=== PATIENT | female | born 1985 | race Caucasian/White ===

== ENCOUNTER → 2017-11-13 14:13 | Outpatient (CLI) | payer OTHER, SELFPAY ==
[2017-11-13 14:24] LABS: Color, Urine Yellow (Yellow); Glucose, Dipstick Normal (Normal); Ketone-Dipstick Negative (Negative); Leukocyte Esterase-Dipstick Negative /ul (Negative); Nitrite-Dipstick Negative (Negative); Occult Blood-Urine 25 /ul (Negative); Protein-Dipstick 15 mg/dl (Negative); Specific Gravity, Urine 1.025 (1.002-1.030); Urine Bilirubin Dipstick Negative (Negative); Urine Clarity Turbid (Clear); Urine Urobilinogen Normal (Normal)
[2017-11-13 14:35] LABS: Bacteria 4+ /hpf (None Seen); Mucous, Urine 0 SEEN /hpf (<or=2+); Red Blood Cells-Urine 0 SEEN /hpf (0-5); Squamous Epithelial Cells - UA 0 SEEN /hpf (5-10); White Blood Cells 0 SEEN /hpf (0-5)
== END ==
PROVIDERS: Family Provider Family Medicine; PCP Family Medicine; Visit Provider Physician Assistant Surgical
DX: M54.5 Low back pain (principal)
CPT/HCPCS: 81001; 87086; 87088

== ENCOUNTER → 2017-12-16 10:00 | Outpatient (CLI) | payer OTHER, SELFPAY ==
[2017-12-16 11:33] LABS: Color, Urine Yellow (Yellow); Glucose, Dipstick Normal (Normal); Ketone-Dipstick 5 mg/dl (Negative); Leukocyte Esterase-Dipstick Negative /ul (Negative); Nitrite-Dipstick Negative (Negative); Occult Blood-Urine 10 /ul (Negative); Protein-Dipstick 15 mg/dl (Negative); Specific Gravity, Urine 1.025 (1.002-1.030); Urine Bilirubin Dipstick Negative (Negative); Urine Clarity Sl. Cloudy (Clear); Urine Urobilinogen 1 mg/dl (Normal)
== END ==
PROVIDERS: Family Provider Family Medicine; PCP Family Medicine; Visit Provider Obstetrics & Gynecology
DX: M54.5 Low back pain (principal)
CPT/HCPCS: 81002; 87086; 87088

== ENCOUNTER → 2017-12-30 15:39 | Outpatient (CLI) | payer OTHER, SELFPAY ==
--- NOTE | 2017-12-30 15:57 | CT_ITS ---
STUDY: CT ABDOMEN AND PELVIS WITHOUT CONTRAST REASON FOR EXAM: Female, 32 years old. Left flank pain and hematuria. History of , unilateral ovarian NG tube removal. RADIATION DOSAGE (If Supplied By Facility): CTDIvol = ( 5.65 ) mGy, DLP = ( 223.53 ) mGycm TECHNIQUE: Transaxial images were obtained from the dome of the diaphragm to the symphysis pubis without oral contrast, and without intravenous contrast. Sagittal and coronal images were reconstructed. Individualized dose optimization techniques were used for this CT. COMPARISON: None. FINDINGS: The visualized lung bases are unremarkable. The visualized portions of the heart are within normal limits. 1.1 cm low-density lesion of the superior right liver. Otherwise unremarkable liver. Contracted gallbladder. Normal spleen. Normal pancreas. Normal bilateral adrenal glands. Normal right kidney without hydronephrosis, renal or ureteral stones. Normal left kidney without hydronephrosis, renal or ureteral stones. Food filled stomach. Normal small intestine. Stool filled colon. The appendix is visualized and appears normal. Normal abdominal aorta. Normal inferior vena cava. Normal retroperitoneum. Distended urinary bladder. Unremarkable uterus. Normal size left ovary. The right ovary is probably been removed. Normal abdominal wall. Degenerative disc changes of the lumbar spine primarily at L1-L2 and L5-S1. CT/Abdomen/Pelvis without Cont IMPRESSION: Normal size of the kidneys bilaterally without hydronephrosis, renal, ureteral or bladder stones. Distended urinary bladder. No acute bowel related findings. Negative for evidence of obstruction, perforation or inflammatory bowel changes. Food filled stomach. Stool-filled colon. A normal appendix is identified. 1 cm low density lesion of the superior right liver somewhat irregular for cyst. Likely to be a hemangioma in this age group. This may be further evaluated with ultrasound, MR or contrast CT exam multi phase. Electronically Signed: Dahiana Santiago MD at 16:31 EDT , Service support ,
== END ==
PROVIDERS: Family Provider Family Medicine; PCP Family Medicine; Visit Provider Family Medicine
DX: R10.9 Unspecified abdominal pain (principal); R31.9 Hematuria, unspecified
CPT/HCPCS: 74176

== ENCOUNTER → 2018-01-03 09:20 | Outpatient (CLI) | payer OTHER, SELFPAY ==
--- NOTE | 2018-01-03 09:27 | US_ITS ---
STUDY: ABDOMINAL ULTRASOUND - RIGHT UPPER QUADRANT REASON FOR VISIT: Female, 32 years old. History of hepatic hemangioma. TECHNIQUE: Ultrasound evaluation of the right upper quadrant was performed with real-time and static gonzalez-scale imaging. TECHNICAL QUALITY: Adequate. COMPARISON: Comparison is made with prior CT scan and abdomen dated December 30, 2017. FINDINGS: Liver: The liver measures 14.3 cm. There is normal echogenicity of the liver. The bile ducts are within normal limits. There is hepatic color flow. The direction of portal flow is hepatopetal. There is a 1.7 cm x 1.7 cm x 1 cm echogenic nodule in the right lobe of the liver adjacent to the right hemidiaphragm.. This corresponds to the CT findings and is suggestive of a small hemangioma. Gallbladder: Normal distended gallbladder. The gallbladder wall measures 2.0 mm. There is a negative sonographic Diehl's sign. There is no pericholecystic fluid. There are no gallstones. Common Bile Duct (C.B.D.): The common bile duct measures 3.0 mm. Pancreas: Normal size of the head, body and tail of the pancreas. There is normal echogenicity of the pancreas. There is no demonstrated pancreatic mass or cyst. Right Kidney: Normal size of the right kidney. The right kidney measures 10.7 cm x 4.2 cm x 3.2 cm. Normal renal cortex. The right cortex measures 1.1 cm. There is no demonstrated renal mass or cyst. Mild fullness of the right renal pelvis. US/Liver IMPRESSION: Findings suggestive of a 1.7 cm x 1.7 cm x 1.8 cm hemangioma in the right lobe of the liver adjacent to the right hemidiaphragm. Electronically Signed: Sujit Medel MD at 15:12 EDT Tel [phone], Service support ,
== END ==
PROVIDERS: Family Provider Family Medicine; PCP Family Medicine
DX: D18.03 Hemangioma of intra-abdominal structures (principal)
CPT/HCPCS: 76705

== ENCOUNTER → 2018-01-25 16:10 | Outpatient (CLI) | payer OTHER, SELFPAY ==
[2018-01-28 12:26] LABS: HPV Reflexed? NOT INDICATED
== END ==
PROVIDERS: Visit Provider Obstetrics & Gynecology
DX: Z12.4 Encounter for screening for malignant neoplasm of cervix (principal)
CPT/HCPCS: 88175; G0145

== ENCOUNTER → 2018-02-10 15:32 | Outpatient (CLI) | payer OTHER, SELFPAY ==
[2018-02-10 17:41] LABS: Color, Urine Straw (Yellow); Glucose, Dipstick Normal (Normal); Ketone-Dipstick Negative (Negative); Leukocyte Esterase-Dipstick Negative /ul (Negative); Nitrite-Dipstick Negative (Negative); Occult Blood-Urine Negative /ul (Negative); Protein-Dipstick Negative (Negative); Urine Bilirubin Dipstick Negative (Negative); Urine Clarity Clear (Clear); Urine Urobilinogen Normal (Normal); Urine pH 6.5 (5.0 - 8.0)
== END ==
PROVIDERS: Family Provider Family Medicine; PCP Family Medicine; Visit Provider Family Medicine
DX: N20.0 Calculus of kidney (principal)
CPT/HCPCS: 81002

== ENCOUNTER → 2018-06-28 12:55 | Outpatient (CLI) | payer OTHER, SELFPAY ==
--- NOTE | 2018-06-28 13:00 | BI_ITS ---
MAMMOGRAPHY - BILATERAL DIAGNOSTIC REASON FOR EXAM: Female, 33 years old. Palpable abnormality in the right lateral breast. PERTINENT HISTORY: Grandmother with breast cancer. TECHNIQUE: Digital bilateral breast james (3D mammographic acquisition) in the CC and MLO projections. 2-D mediolateral oblique (MLO) and craniocaudad (CC) views of both breasts were obtained. CAD: Full Field Digital Mammography with Computer Added Detection was performed. COMPARISON: None. Baseline examination. FINDINGS: Breast Composition: The breasts are extremely dense, which lowers the sensitivity of mammography. There are no dominant masses or suspicious calcifications. No other significant abnormalities are identified. BI/DIAG MAMM W/CAD, BILAT IMPRESSION: Negative diagnostic mammogram. With the patient's history of a palpable abnormality in the right breast, correlation with ultrasound is recommended. ASSESSMENT CATEGORY: BIRADS Category 0: Incomplete. Need additional imaging evaluation. A letter regarding these results will be sent to the patient by the facility within 30 days. Approximately 10% of breast cancers are not detected by mammography. A normal mammogram should not delay biopsy of a clinically suspicious abnormality. Electronically Signed: Sujit Medel MD at 15:23 EST Tel [phone], Service support ,
--- NOTE | 2018-06-28 13:00 | US_ITS ---
STUDY: ULTRASOUND BREAST - RIGHT REASON FOR EXAM: Female, 33 years old. Palpable lump in the right breast. TECHNIQUE: Axial and longitudinal images of the RIGHT breast were performed with a high resolution ultrasound transducer. COMPARISON: Comparison is made with prior mammogram abnormality. FINDINGS: RIGHT Breast: The optimal abnormality corresponds to a 7 mm x 6 mm x 3 mm well-defined hypoechoic nodule at the 9:00 position breast at 3 cm from the nipple. Mild peripheral increased vascularity. This may represent a fibroadenoma. A biopsy is recommended for further evaluation. US/Breast Limited Unilateral IMPRESSION: The palpable abnormality corresponds to a 7 mm x 3 mm x 6 mm well-defined hypoechoic nodule. Tissue diagnosis recommended. ASSESSMENT CATEGORY: BIRADS Category 4: Suspicious - Biopsy Should Be Considered. A letter regarding these results will be sent to the patient by the facility within 30 days. Electronically Signed: Sujit Medel MD at 15:22 EST Tel [phone], Service support ,
== END ==
PROVIDERS: Family Provider Family Medicine; PCP Family Medicine; Referring Provider Obstetrics & Gynecology; Visit Provider Obstetrics & Gynecology
DX: N63.11 Unspecified lump in the right breast, upper outer quadrant (principal)
CPT/HCPCS: 76642; 77062; 77066; G0279

== ENCOUNTER → 2018-06-30 16:23 | Outpatient (CLI) | payer OTHER, SELFPAY ==
--- NOTE | 2018-06-30 | BRBX_PTH ---
PATIENT: RONIT AGARWAL LOC: [facility] U#:[id number] AGE/SX: 39/F ROOM: RE06/30/[address]: Dr. Zack Romero MD : 1985 BED: DIS: SPEC #: [id number] RECD: 06/30/18 16:17 STATUS: JENNIFER CAROLINE #: [id number] CATE: 06/30/18 00:[address]: Zack Romero DEPT: SURGICAL PATHOLOGY RECD BY: Liang Witt ENTERED: 07/01/18 08:58 SP TYPE: BREAST BX OTHR DR: Dr. Juan Qureshi MD Tissues: Right breast, NOS Procedures: Surgery Specimen Level IV HEADER OPERATION: Ultrasound-guided mammotome right breast biopsy PRE-OP DIAGNOSIS: Right breast lump N63.10 TISSUE SUBMITTED: Right breast tissue ISCHEMIC TIME: <1 minute FIXATION TIME: 77 hours MICROSCOPIC DIAGNOSIS Right breast mass, ultrasound-guided core biopsy: Minimal fibrocystic change. No evidence of malignancy. AM:anne marie 07/04/18 MICROSCOPIC DESCRIPTION Slides are reviewed. GROSS DESCRIPTION Received in fixative is one container labeled with the patient's name and designated right breast biopsy. The specimen consists of multiple irregular and elongated fragments of yellow-white soft tissue that in aggregate measure 2.3 x 2 x 0.2 cm. The specimen is totally submitted in one cassette. / AM:anne marie 07/01/18 TC:5 CPT: 33052
[2018-06-30 14:28] VITALS: BMI 21.4
== END ==
PROVIDERS: Family Provider Family Medicine; PCP Family Medicine; Referring Provider Surgery; Visit Provider Surgery
DX: N60.11 Diffuse cystic mastopathy of right breast (principal)
CPT/HCPCS: 88305

== ENCOUNTER → 2018-10-12 | Outpatient (CLI) | payer OTHER, SELFPAY ==
[2018-06-30 14:28] VITALS: BMI 21.4
--- NOTE | 2018-10-12 13:41 | US_ITS ---
STUDY: ULTRASOUND BREAST - RIGHT REASON FOR EXAM: Female, 33 years old. Right abnormal ultrasound which resulted in biopsy. Three-month follow-up. TECHNIQUE: Axial and longitudinal images of the RIGHT breast were performed with a high resolution ultrasound transducer. COMPARISON: June 28, 2018 pre biopsy exam. FINDINGS: RIGHT Breast: At the 9:00 position identified 3 cm from the nipple there is a 0.8 x 1.2 x 0.3 cm, ovoid, hypoechoic mass with indistinct but smooth margins. There is no posterior enhancement. There is no posterior shadowing. A clip is seen within this finding. This finding is wider than it is tall. US/Breast Limited Unilateral IMPRESSION: Probably benign finding in the 9:00 position 3 cm from the nipple. The fact that the biopsy clip is within this abnormality indicates appropriate tissue sampling. ASSESSMENT CATEGORY: BIRADS Category 3: Probably Benign - Short-Interval Follow-up Suggested. A letter regarding these results will be sent to the patient by the facility within 30 days. Electronically Signed: Chris Aguayo MD at 17:02 EDT , Service support ,
--- NOTE | 2018-10-12 13:46 | BI_ITS ---
MAMMOGRAPHY - UNILATERAL DIAGNOSTIC: RIGHT BREAST REASON FOR EXAM: Female, 33 years old. Family history with maternal grandmother diagnosed at age 50. Right three-month follow-up is recommended on ultrasound biopsy done in physician's office on June 30, 2018. Right breast lump in June 2018 with soreness in right lower quadrant ultrasound was done same day and was read out suspicious. PERTINENT HISTORY: Please see above. TECHNIQUE: Digital examination. Mediolateral oblique (MLO) and craniocaudad (CC) views of the breast were obtained. CAD: COMPARISON: None. FINDINGS: Breast Composition: The breasts are heterogeneously dense, which may obscure small masses. There are no dominant masses or suspicious calcifications. A biopsy clip is identified within the mid zone right upper outer quadrant. No other significant abnormalities are identified. BI/DIAG MAMM W/CAD, UNILAT IMPRESSION: Negative unilateral diagnostic mammogram. Yearly followup recommended. ASSESSMENT CATEGORY: BIRADS Category 0: Incomplete. Need additional imaging evaluation. A letter regarding these results will be sent to the patient by the facility within 30 days. FOLLOW-UP RECOMMENDATION: Recommend repeat right breast sonography to be compared with sonography performed June 28, 2018 and October 12, 2018. Approximately 10% of breast cancers are not detected by mammography. A normal mammogram should not delay biopsy of a clinically suspicious abnormality. Electronically Signed: Chris Aguayo MD at 15:33 EDT , Service support ,
== END | disposition home or self-care (01) ==
LOC: OPUS 13:40
PROVIDERS: Family Provider Family Medicine; PCP Family Medicine; Referring Provider Surgery; Visit Provider Surgery
DX: R92.8 Other abnormal and inconclusive findings on diagnostic imaging of breast (principal)
CPT/HCPCS: 76642; 77061; 77065; G0279

== ENCOUNTER → 2018-10-22 | Outpatient (CLI) | payer OTHER, SELFPAY ==
[2018-06-30 14:28] VITALS: BMI 21.4
[2018-10-22 11:38] LABS: Color, Urine Yellow (Yellow); Glucose, Dipstick Normal (Normal); Ketone-Dipstick Negative (Negative); Leukocyte Esterase-Dipstick Negative /ul (Negative); Nitrite-Dipstick Negative (Negative); Occult Blood-Urine Negative /ul (Negative); Protein-Dipstick Negative (Negative); Urine Bilirubin Dipstick Negative (Negative); Urine Clarity Clear (Clear); Urine Urobilinogen Normal (Normal)
== END | disposition home or self-care (01) ==
LOC: LABSPEC 10:46
PROVIDERS: Family Provider Family Medicine; PCP Family Medicine; Referring Provider Family Medicine; Visit Provider Family Medicine
DX: N20.0 Calculus of kidney (principal)
CPT/HCPCS: 81002; 87086; 87088